=== PATIENT | female | born 1980 | race Caucasian/White ===

== ENCOUNTER 2016-09-06 08:02 | Emergency (ER) | payer MEDICAID ==
--- NOTE | ~2016-09-06 | EKG ---
PATIENT: JESIKA LAUREN UNIT #: [id number] Ventricular Rate: 86 BPM Atrial Rate: 86 BPM P-R Interval: 122 ms QRS Duration: 78 ms Q-T Interval: 358 ms QTC Calculation(Bezet): 428 ms P Narvon: 33 degrees Calculated R Narvon: -3 degrees Calculated T Narvon: 33 degrees Diagnosis Line: Normal sinus rhythm Diagnosis Line: Moderate voltage criteria for LVH, may be normal Diagnosis Line: variant Diagnosis Line: Baseline wander Borderline ECG Diagnosis Line: No previous ECGs available Diagnosis Line: Confirmed by LA LUZ MD ([id number]) on 09/08/2016 Diagnosis Line: 9:35:50 AM INTERPRETING MD: SUKH CHAMBERLAIN
--- NOTE | ~2016-09-06 | CR72 ---
[facility]. [facility] A Service of [facility] & [facility] RADIOLOGY TEXT RESULTS PATIENT: JESIKA LAUREN LOCATION: SED : 76 UNIT #: [id number] AGE: [address]: Hung Arrington MD SEX: F ORDER DR: [id number] [address] [address] [id number] E MR#: [id number] Acc #: [id number] NAME: JESIKA LAUREN : 1980 SEX: F STUDY DATE/TIME: 09/06/2016 8:26 UNIT: SED ROOM: STUDY DESCRIPTION: CR Chest Single View Portable Attending Physician: Hung Arrington M.D. Ordering Physician: Hung Arrington M.D. Primary Care Physician: Primary Care Physician No MEDICAL IMAGING REPORT This report is preliminary unless electronic signature is present. EXAM Portable chest x-ray 09/06/2016 HISTORY Chest pain. Chest pain began yesterday. Smoker for few years. FINDINGS AP radiograph of the chest is presented. The bony structures are unremarkable. Heart and mediastinum normal in size and contour. Lungs are well inflated bilaterally. There is no evidence of acute infectious or inflammatory disease. No pleural effusion or pneumothorax. No suspicious nodule. Dictated by... Kristopher Dunbar M.D. THIS IS AN ELECTRONICALLY VERIFIED REPORT Kristopher Dunbar M.D. at 09/07/2016 9:16 AM [facility]delia TD: 09/06/2016 10:05 JOB #: [id number] MEDICAL IMAGING REPORT Page 1 of 1
[~2016-09-06 08:02] MED LIST: AUGMENTIN PO; BACTRIM DS TABL1 TA1 PO; ELIMITE60 GM TOP; FERROUS SULFATE PO; HCTZ PO; IMPLANON; MACRODANTIN PO; NO MEDICATIONS; PEN-VEE K PO; PRENATAL VITAMI1 TA3 PO; PRENATAL1 TA1 PO; PYRIDIUM100 MG PO; ZOFRAN ODT4 MG/UDTAB PO; ZOFRAN8 MG PO
[2016-09-06 08:25] LABS: BASOPHIL# 0.1 X10e3 (0-0.3); EOSINOPHIL# 0.1 X10e3 (0-0.7); HEMATOCRIT 25.6 % (35.0-45.0); HEMOGLOBIN 7.2 gm/dL (12.0-16.0); LYMPHOCYTE# 1.3 X10e3 (1.0-3.5); LYMPHOCYTE% 18.5 % (17.0-45.0); MEAN CELL VOLUME 65.1 FL (83-96); MEAN CORPUSCULAR HEMOGLOBIN 18.4 PG (28-34); MEAN CORPUSCULAR HGB CONC 28.2 g/dL (30-36); MEAN PLATELET VOLUME 7.7 FL (6.5-11.5); MONOCYTE# 0.5 X10e3 (0-1.0); MONOCYTE% 7.5 % (3.0-12.0); PLATELET COUNT 400 X10e3 (140-420); RED BLOOD COUNT 3.93 X10e (3.90-5.30); RED CELL DISTRIBUTION WIDTH 19.9 % (11.0-15.5)
[2016-09-06 08:28] LABS: POC - CKMB 1.1 ng/mL (0.0-7.9); POC - TROPONIN <0.05 ng/mL (<=0.05)
[2016-09-06 08:35] LABS: DIFF IND YES
[2016-09-06 09:10] LABS: HYPOCHROMIA MOD; PLATELET ESTIMATE NORMAL (NORMAL)
== END 2016-09-06 09:53 | disposition home or self-care (01) ==
LOC: SED 08:02
PROVIDERS: Emergency Medicine
DX: J40 Bronchitis, not specified as acute or chronic (principal); D64.9 Anemia, unspecified; F17.200 Nicotine dependence, unspecified, uncomplicated; Z88.8 Allergy status to other drugs, medicaments and biological substances
CPT/HCPCS: 71010; 82553; 84484; 85025; 93005; 96374; 99284; J1885